=== PATIENT | female | born 1990 ===

== ENCOUNTER 2017-01-27 19:55 | Inpatient (IN) | payer BC ==
[~2017-01-27] VITALS: Ht 154.9 cm; Wt 111.4 kg
[~2017-01-27 19:55] MED LIST: DOCU240C31 PO; IBUP-1222 PO; OXYC-302 PO
[2017-01-27] MEDS ORDERED: TERBUTALINE 1 MG/ML, 1ML IVPush PRN ×2 (22:30)
[2017-01-27] MEDS ORDERED: OXYTOCIN 30U/ 0.9% NaCL 500ML 500 ML IV ONE (22:30)
[2017-01-27] MEDS ORDERED: ONDANSETRON 2MG/ML, 2ML IVPush PRN (22:30)
[2017-01-27] MEDS ORDERED: ALUMINUM/MAG/SIMETHICONE 30 ML UDC PO PRN (22:30)
[2017-01-27] MEDS ORDERED: FENTANYL PF 100 MCG/2ML IV PRN (22:30)
[2017-01-27] MEDS: D5%-LACTATED RINGERS 1,000 ML IV SCH (22:30)
[2017-01-27] MEDS ORDERED: TERBUTALINE 1 MG/ML, 1ML SQ PRN (22:30)
[2017-01-27] MEDS ORDERED: CALCIUM CARBONATE 500 MG TAB.CHEW PO PRN (22:30)
[2017-01-27] MEDS ORDERED: OXYTOCIN 30U/ 0.9% NaCL 500ML 500 ML ONE (22:36)
[2017-01-27] MEDS ORDERED: NEWBORN KIT ONE (22:36)
[2017-01-27] MEDS: LACTATED RINGERS 1,000 ML IV SCH (22:45)
[2017-01-27 22:48] LABS: HEMATOCRIT 41.5 % (34.6-47.8); HEMOGLOBIN 13.8 g/dL (11.7-16.4); WHITE BLOOD COUNT 14.4 x10^3/uL (3.4-10)
[2017-01-27] MEDS ORDERED: FENTANYL PF 100 MCG/2ML ONE (22:55)
[2017-01-27] MEDS: FENTANYL PF 100 MCG/2ML IVPush PRN (22:57)
[2017-01-27 23:02] VITALS: BP 134/63
[2017-01-27] MEDS ORDERED: MISOPROSTOL 200 MCG TABLET ONE (23:58)
[2017-01-27] MEDS ORDERED: LIDOCAINE 1%, 20ML ONE (23:58)
[2017-01-28] MEDS: FENTANYL PF 100 MCG/2ML IVPush PRN
[2017-01-28] MEDS ORDERED: FENTANYL PF 100 MCG/2ML ONE
[2017-01-28] MEDS ORDERED: FENTANYL/BUPIV./NS/PF 250 ML EPIDCONT ONE (00:05)
[2017-01-28] MEDS ORDERED: FENTANYL/BUPIV./NS/PF 250 ML EPIDCONT SCH (00:38)
[2017-01-28] MEDS ORDERED: LACTATED RINGERS 1,000 ML IVBOLUS PRN (01:00)
[2017-01-28] MEDS ORDERED: EPHEDRINE 50 MG/ML, 1ML IVPush PRN (01:00)
[2017-01-28] MEDS ORDERED: NALOXONE 0.4 MG/ML, 1ML IVPush PRN (01:00)
[2017-01-28] MEDS: LACTATED RINGERS 1,000 ML IV SCH ×3 (01:55→08:38)
[2017-01-28] MEDS ORDERED: OXYTOCIN 30U/ 0.9% NaCL 500ML 500 ML IV SCH ×2 (04:53)
[2017-01-28] MEDS ORDERED: MISOPROSTOL 200 MCG TABLET PR PRN (05:00)
[2017-01-28] MEDS ORDERED: OXYcodone/APAP 5/325MG TABLET PO PRN (05:00)
[2017-01-28] MEDS ORDERED: ONDANSETRON 2MG/ML, 2ML IV PRN (05:00)
[2017-01-28] MEDS ORDERED: OXYTOCIN 30U/ 0.9% NaCL 500ML 500 ML ONE (06:13)
[2017-01-28] MEDS ORDERED: IBUPROFEN 600 MG TABLET ONE (06:28)
[2017-01-28] MEDS ORDERED: OXYcodone/APAP 5/325MG TABLET ONE (06:28)
[2017-01-28] MEDS: D5%-LACTATED RINGERS 1,000 ML IV SCH (06:30)
[2017-01-28] MEDS: IBUPROFEN 600 MG TABLET PO PRN ×2 (06:30→23:11)
[2017-01-28] MEDS: OXYcodone/APAP 5/325MG TABLET PO PRN ×4 (06:30→23:11)
[2017-01-28 08:15] VITALS: BP 116/70
[2017-01-28] MEDS: DOCUSATE 100 MG CAPSULE PO PRN ×2 (10:35→23:11)
[2017-01-28] MEDS: PRENATAL VIT/IRON/FA 1 EACH TABLET PO SCH (10:35)
[2017-01-28 12:58] LABS: HEMATOCRIT 36.6 % (34.6-47.8); HEMOGLOBIN 12.2 g/dL (11.7-16.4); WHITE BLOOD COUNT 18.4 x10^3/uL (3.4-10)
[2017-01-28 17:49] VITALS: BP 113/60
[2017-01-28 19:30] VITALS: BP 122/68
[2017-01-28 23:55] VITALS: BP 122/75
[2017-01-29] MEDS: DOCUSATE 100 MG CAPSULE PO PRN (08:04)
[2017-01-29] MEDS: PRENATAL VIT/IRON/FA 1 EACH TABLET PO SCH (08:04)
[2017-01-29] MEDS: IBUPROFEN 600 MG TABLET PO PRN (08:04)
== END 2017-01-29 13:41 | disposition home or self-care (01) | DRG 774 ==
LOC: LDOP 19:55 → LDIP 22:36 → 2NW 01-28 07:19
PROVIDERS: ADMIT Obstetrics & Gynecology; ATTEND Obstetrics & Gynecology
PROC: 10E0XZZ Delivery of Products of Conception, External Approach (ICD-10-PCS; principal; 2017-01-28)
PROC: 0KQM0ZZ Repair Perineum Muscle, Open Approach (ICD-10-PCS; 2017-01-28)
DX: O77.0 Labor and delivery complicated by meconium in amniotic fluid (principal); O72.1 Other immediate postpartum hemorrhage; O70.1 Second degree perineal laceration during delivery; Z37.0 Single live birth; Z3A.40 40 weeks gestation of pregnancy
CPT/HCPCS: 36415; 85025; 86850; 86900; 96374; J3010; J2590; J7120